=== PATIENT | female | born 1965 | race African-American/Black ===

== ENCOUNTER 2016-12-21 13:43 | Inpatient (IN) ==
[2016-12-21 14:35] LABS: BASO% 0.6 % (0.0-0.8); EOS# 0.18 X1000 (0.0-0.7); EOS% 2.6 % (0.0-10.0); HEMATOCRIT 17.3 % (37.0-47.0); HEMOGLOBIN 4.6 g/dL (12.0-16.0); LYMPH# 1.51 X1000 (1.2-3.4); LYMPH% 22.2 % (20.5-51.1); MANUAL DIFF NEEDED? YES; MCH 16.3 PG (27-31); MCHC 26.6 g/dL (33-37); MCV 61.1 FL (81-99); MONO# 0.37 X1000 (0.11-0.59); MONO% 5.4 % (1.7-9.3); NEUT% 69.2 % (42.2-75.2); PLT 279 X1000 (130-400); RBC 2.83 XMIL (4.2-5.4)
[2016-12-21 14:43] LABS: EOS 2 % (1-10); HYPOCHROM 3+; LYMPHS 22 % (21-51); MONO 4 % (1-9)
[2016-12-21 15:02] LABS: AGAP 13; ALBUMIN 3.6 g/dL (3.5-5.0); ALKALINE PHOSPHATASE 96 U/L (32-104); BUN 35 mg/dL (8-22); CALCIUM 8.4 mg/dL (8.8-10.2); CHLORIDE 103 mmol/L (98-107); COSMO 285; GOT 10 U/L (10-30); GPT < 5 U/L (10-36); POTASSIUM 3.6 mmol/L (3.5-5.1); SODIUM 138 mmol/L (136-145); TCO2 23 mmol/L (25-35); TOTAL PROTEIN 8.3 g/dL (6.3-8.3)
[2016-12-21] MEDS: NS 1,000 ML IV SCH (15:22)
[2016-12-21 15:36] LABS: OCCULT BLOOD 1 NEGATIVE (NEGATIVE)
--- NOTE | 2016-12-21 15:37 | PROVIDER DOCUMENTATION ---
This chart was entered by Gisselle Sunshine Scribe, acting as scribe for Pablo Gutierrez Jr, MD. HPI-Syncope/Dizziness - General Chief Complaint: Dizziness Stated Complaint: DIZZINESS Time Seen by Provider: 12/21/16 13:59 Source: patient Allergies/Adverse Reactions: Patient Allergies Allergy/AdvReac Type Severity Reaction Status Date / Time No Known Allergies Allergy Verified 08/21/15 01:04 Home Medications: Home Medication List Medication Instructions Recorded Confirmed Last Taken Type Lisinopril/Hydrochlorothiazide 1 each PO DAILY #90 tablet 08/17/15 08/21/15 05:00 Rx [Zestoretic 20-25 mg Tablet] Metoprolol [Lopressor] 25 mg PO BID #180 tablet 08/17/15 08/21/15 08/20/15 05: 00 Rx Tramadol HCl [Ultram] 50 mg PO Q6H PRN PRN #20 tablet 08/21/15 Unknown Rx - History of Present Illness-Syncope/Dizzy Nature of Presenting Problem: 51 yo f presents to the ER with complaint of dizziness, onset last night. States she has had similar episodes in the past when she needed blood, most recent was in 2014. States she was just getting to work, was standing and then got more and more dizzy and her vision faded to black and her legs "felt like jelly". Prior Episodes: reports: remote history Onset/Duration: reports: last night Position/Activity at time of episode: reports: standing Symptoms prior to episode: reports: lightheaded Context: reports: felt faint, almost passed out Loss of Consciousness: no loss of consciousness Current Symptoms: reports: lightheaded, dizzy Recently Seen Here or By Another Healthcare Provider: No - Dizziness Dizziness Related Current/Associated Symptoms: reports: weakness, dizzy, lightheaded Any recent trauma/injury?: reports: none Modifying Factors: improves with: nothing Patient usually:: reports: walks without assistance Review of Systems - Adult - REVIEW OF SYSTEMS - ADULT Constitutional: denies: chills, fever Eyes: reports: no symptoms reported Ears, Nose, Mouth & Throat: reports: no symptoms reported Cardiovascular: denies: chest pain, palpitations Respiratory: denies: cough, shortness of breath Gastrointestinal: reports: no symptoms reported Genitourinary: reports: no symptoms reported Musculoskeletal: reports: no symptoms reported Integumentary: reports: no symptoms reported Neurological: reports: dizziness/vertigo. denies: headache/migraines, syncope Psychiatric: reports: no symptoms reported Endocrine: reports: no symptoms reported Hematologic/Lymphatic: reports: no symptoms reported Allergic/Immunologic: reports: no symptoms reported All Other Systems: Reviewed and Negative Past History - Adult - PAST MEDICAL HISTORY-ADULT Review of Records: reports: Nursing Assessment Review, Medications Reviewed Cardiovascular: reports: HTN Obstetrical/Gynecological: reports: other (hx cervical CA) Endocrine/Immune: reports: anemia - PRIOR SURGERIES/PROCEDURES Surgical/Procedure History: reports: BTL, gastric bypass - IMMUNIZATION STATUS Childhood Immunizations: See Nurse Assessment Flu Vaccine: See Nurse Assessment Physical Exam-General - PHYSICAL EXAM-ADULT Initial Vital Signs Reviewed: Yes - CONSTITUTIONAL General Appearance: alert, no apparent distress - EYES Eyes: PERRL/EOMI, pink conjunctivae - HEAD, EARS, NOSE, MOUTH & THROAT HENMT: moist mucous membranes, normal ENT inspection, other (upper dentures) - NECK Neck: supple, normal inspection - RESPIRATORY Respiratory: no respiratory distress, no accessory muscle use - CARDIOVASCULAR Cardiovascular: normal peripheral pulses, regular rate, rhythm, systolic murmur - GENITOURINARY Female Genitalia/Pelvic Exam: negative: active bleeding, blood Rectal Exam: normal exam, normal rectal tone. negative: black stool, blood streaked stool, hemorrhoids, tenderness - MUSCULOSKELETAL Back Exam: no CVA tenderness, no vertebral tenderness Extremity: normal gait, normal inspection - SKIN Integumentary: normal color, warm/dry - NEUROLOGIC Neurologic: grossly normal, no motor/sensory deficits - PSYCHIATRIC Psych/Mental Status: normal mood/affect, normal thought content, normal thought process, oriented x 3 Progress - PLAN OF CARE/RESULTS Progress/Plan/Lab Results: Vital Signs - 8 hr 12/21/16 13:52 12/21/16 14:00 Temperature 98 F Pulse Rate 102 H Pulse Rate [Sitting] 89 Pulse Rate [Standing] 89 Pulse Rate [Supine] 93 H Respiratory Rate 18 Blood Pressure 109/63 Blood Pressure [Sitting] 112/63 Blood Pressure [Standing] 123/71 Blood Pressure [Supine] 126/68 O2 Sat by Pulse Oximetry 100 Laboratory Results - last 24 hr 12/21/16 12/21/16 12/21/16 14:13 14:13 14:13 WBC 6.81 RBC 2.83 L Hgb 4.6 L* Hct 17.3 L MCV 61.1 L MCH 16.3 L MCHC 26.6 L RDW Std Deviation 20.3 H Plt Count 279 MPV Not Reportable Immature Gran % (Auto) 0.0 Neut % (Auto) 69.2 Lymph % (Auto) 22.2 Stafford % (Auto) 5.4 Eos % (Auto) 2.6 Baso % (Auto) 0.6 Immature Gran # (Auto) 0.00 Neut # (Auto) 4.71 Lymph # (Auto) 1.51 Stafford # (Auto) 0.37 Eos # (Auto) 0.18 Baso # (Auto) 0.04 Segmented Neutrophils 72 Lymphocytes 22 Monocytes 4 Eosinophils 2 Hypochromia 3+ Poikilocytosis 1+ Anisocytosis 1+ Microcytosis 3+ Sodium 138 Potassium 3.6 Chloride 103 Carbon Dioxide 23 L Anion Gap 13 BUN 35 H Creatinine 1.4 H Estimated GFR/1.73 m2 40 BUN/Creatinine Ratio 25 Glucose 123 H Calculated Osmolality 285 Calcium 8.4 L Total Bilirubin 0.50 AST 10 ALT < 5 L Alkaline Phosphatase 96 Total Protein 8.3 Albumin 3.6 Globulin 5.0 Albumin/Globulin Ratio 1.0 Blood Type B POSITIVE Antibody Screen NEGATIVE Crossmatch See Detail Orders Category Date Time Status ED: Orthostatic Vital Signs (E as directed Care 12/21/16 13:57 Active Transfuse .Give-Transfuse Care 12/21/16 14:33 Active CBC WITH DIFF [HEME] Stat Lab 12/21/16 14:13 Completed COMPREHENSIVE METABOLIC PANEL [CHEM] Stat Lab 12/21/16 14:13 Completed FOLATE Urgent Lab 12/21/16 14:13 Received HH [HGB AND HCT] [HEME] Urgent Lab 12/21/16 23:00 Ordered LRPC (RED CELLS) [BBK] Stat Lab 12/21/16 14:13 Results OCCULT BLOOD SCREEN STOOL PL Stat Lab 12/21/16 15:31 Ordered RETIC COUNT [HEME] Urgent Lab 12/21/16 15:20 Ordered TYPE & SCREEN [BBK] Stat Lab 12/21/16 14:13 Results UA [URINALYSIS W/POSS RFLX CULT-1] [URINALYSIS] Stat Lab 12/21/16 15:23 Uncollected UIBC W TOTAL IRON [CHEM] Urgent Lab 12/21/16 14:13 Received VITAMIN B12 Urgent Lab 12/21/16 14:13 Received 0.9% Sodium Chloride Inj [Ns] 1,000 ml Med 12/21/16 15:22 Active IV 75 mls/hr Transfer/Admit Order [TRANSFER] Routine Transfer 12/21/16 15:20 Ordered Result Diagrams: 12/21/16 14:13 12/21/16 14:13 - CONSULTS/PCP/HOSPITALIST Notification #1 *Consult/PCP/Hospitalist*: Dr. Pop Time Discussed: 14:59 Consult Disposition: Admit Departure - Departure Date of Disposition Decision: 12/21/16 Time of Disposition Decision: 15:09 DIAGNOSIS: Microcytic anemia, Anemia requiring transfusions Disposition: ADMITTED INPATIENT 09 Certified Medical Emergency: Emergent Condition: Good Referrals and Follow-Ups: Misael Reeves MD [Primary Care Provider] - - Critical Care Note This patient required my direct & personal management of CC.: No This chart was documented by the indicated scribe, (Gisselle Sunshine Scribe) and accurately reflects the services I performed and decisions made by me, Pablo Gutierrez Jr, MD, as attested by the provider's signature.
[2016-12-21 15:40] LABS: RETIC% 1.54 % (0.8-2.1); RETIC-HE 14.6 PG (28.2-36.6)
[2016-12-21 15:46] LABS: IRON SATURATION 3 %; TIBC 429 ug/dL; TOTAL IRON 14 ug/dL (49-151); UNBOUND IRON 415 ug/dL (112-346)
[2016-12-21] MEDS ORDERED: SODIUM CHLORIDE 0.9% INJ SCH (16:08)
[2016-12-21] MEDS ORDERED: ZOFRAN IV PRN (16:08)
[2016-12-21] MEDS ORDERED: TYLENOL PO PRN (16:08)
[2016-12-21] MEDS ORDERED: NS 1,000 ML IV ONE (16:08)
[2016-12-21 16:55] LABS: BILIRUBIN URINE NEGATIVE (NEGATIVE); BLOOD URINE 2+ (NEGATIVE); CLARITY CLOUDY (CLEAR); COLOR YELLOW; GLUCOSE URINE NEGATIVE (NEGATIVE); LEUKOCYTES URINE 2+ (NEGATIVE); NITRITE URINE NEGATIVE (NEGATIVE); PROTEIN URINE TRACE mg/dL (NEGATIVE); UROBILINOGEN URINE NORMAL
[2016-12-21 16:56] LABS: URINE CULTURE PL NEEDED? YES; URINE EPITHELIAL CELLS >10 /HPF (<10); URINE WBC TNTC /HPF (<10)
[2016-12-21 16:57] LABS: URINE CAST NONE SEEN /LPF; URINE CRYSTAL NONE SEEN /HPF; URINE SOURCE CLEAN CATCH
[2016-12-21] MEDS: PROTONIX IV SCH (17:11)
[2016-12-21 23:34] LABS: HEMATOCRIT 20.5 % (37.0-47.0); HEMOGLOBIN 5.8 g/dL (12.0-16.0)
[2016-12-22] MEDS ORDERED: TYLENOL PO ONE (03:52)
[2016-12-22] MEDS ORDERED: BENADRYL IV ONE (03:53)
[2016-12-22] MEDS: NS 1,000 ML IV SCH (13:54)
[2016-12-22 14:16] LABS: HEMATOCRIT 24.6 % (37.0-47.0); HEMOGLOBIN 7.2 g/dL (12.0-16.0); MCH 20.5 PG (27-31); MCHC 29.3 g/dL (33-37); MCV 70.1 FL (81-99); PLT 213 X1000 (130-400); RBC 3.51 XMIL (4.2-5.4)
--- NOTE | 2016-12-22 15:37 | PROGRESS NOTE ---
DATE: 12/22/2016 SUBJECTIVE: The patient has no focal complaints. She seems like she is feeling better. OBJECTIVE: Vital signs: Blood pressure was 122/77, heart rate 76, respiratory rate 18, temperature 98.1 degrees. Cardiovascular: Regular rate and rhythm. Pulmonary: Bilateral breath sounds. Clear to auscultation. GI: Soft, nontender, nondistended. Bowel sounds are positive. LABORATORY DATA: Hemoglobin and hematocrit had only come up to 5.8 and 20.5. Reticulocyte count normal. Chemistries I did not repeat. Iron studies show low iron, high iron-binding capacity, 3% iron saturation, ferritin was not done, B12 and folate were normal. PROBLEM LIST: 1. Symptomatic anemia. She is being transfused another 2 units and then we will reassess her hemoglobin and hematocrit and follow. 2. Acute kidney injury. Continue hydration, repeat labs and follow. 3. Hypertension appears to be stable. Continue to monitor. cc: Garett Pop MD
--- NOTE | 2016-12-22 15:46 | HISTORY AND PHYSICAL ---
CHIEF COMPLAINT: Presyncope. HISTORY OF PRESENT ILLNESS: A 51-year-old female with chronic anemia, without really a great explanation who came in with dizziness. She had similar episodes in the past. She has needed transfusion in the past. Last episode was 2014. She was dizzy with walking. Her legs felt like jelly, but she did not actually pass out. She reports no hematochezia and no melena. She has not had a menstrual cycle in 3 years. Her hemoglobin and hematocrit on admission at this time was 4.6 and 17 with a BUN and creatinine of 35 and 1.4. Patient was admitted for symptomatic anemia. PAST MEDICAL HISTORY: 1. Hypertension. 2. Chronic anemia. PAST SURGICAL HISTORY: Denies. FAMILY HISTORY: Reviewed, noncontributory. SOCIAL HISTORY: No tobacco or ethanol. ALLERGIES: No known drug allergies. MEDICATIONS: She is on lisinopril, hydrochlorothiazide 25 daily, Pepcid 40 b.i.d., Klor-Con 10 daily, Norvasc 5 daily. REVIEW OF SYSTEMS: Otherwise negative times a 10 point review of systems. PHYSICAL EXAMINATION: VITAL SIGNS: Blood pressure 122/77, heart rate 76, respiratory rate 18, temperature 98.1, 95% on room air. GENERAL: Well-developed female, in no acute distress. HEENT: Head exam was normocephalic, atraumatic. Eye exam, pupils equal, round, reactive to light. Extraocular movements were intact. Ear, nose and throat exam showed moist mucous membranes. She had pale conjunctivae. NECK: Supple. No thyromegaly. PULMONARY: Exam bilateral breath sounds. Clear to auscultation. GI: Soft, nontender, nondistended. Bowel sounds were positive. EXTREMITIES: No clubbing or cyanosis. LYMPHATICS: No peripheral edema. NEUROLOGICAL: Nonfocal. MUSCULOSKELETAL: Exam was 5/5 on all 4 extremities. LABORATORY DATA: Hemoglobin and hematocrit on admission was 4 and 17, MCV of 61. Normal white count and Hemoccult was negative per rectal exam per ER. ASSESSMENT: This is a 51-year-old female with symptomatic anemia and hypertension. 1. Symptomatic anemia. We will check vitamin B12, folate, iron levels and follow clinically. We will plan to transfuse 2 units and reassess and decide about further transfusions. 2. Acute kidney injury. We will continue gentle hydration. Monitor labs. Hold hydrochlorothiazide and lisinopril for the time being. DISPOSITION: Pending her clinical course. cc: MD Misael Lal MD
[2016-12-22] MEDS: PROTONIX IV SCH (16:59)
[2016-12-22] MEDS: PEPCID PO SCH (20:09)
[2016-12-22 23:31] LABS: OCCULT BLOOD 1 POSITIVE (NEGATIVE)
[2016-12-23 06:00] LABS: HEMOGLOBIN 7.2 g/dL (12.0-16.0); MCH 20.1 PG (27-31); MCHC 28.8 g/dL (33-37); MCV 69.8 FL (81-99); PLT 226 X1000 (130-400); RBC 3.58 XMIL (4.2-5.4)
[2016-12-23 06:19] LABS: AGAP 6; BUN 22 mg/dL (8-22); CALCIUM 8.3 mg/dL (8.8-10.2); CHLORIDE 105 mmol/L (98-107); COSMO 276; POTASSIUM 4.3 mmol/L (3.5-5.1); SODIUM 137 mmol/L (136-145); TCO2 26 mmol/L (25-35)
[2016-12-23] MEDS ORDERED: PRINIVIL PO SCH (09:00)
[2016-12-23] MEDS ORDERED: KLOR-CON PO SCH (09:00)
[2016-12-23] MEDS ORDERED: NORVASC PO SCH (09:00)
[2016-12-23] MEDS ORDERED: HYDROCHLOROTHIAZIDE PO SCH (09:00)
[2016-12-23] MEDS: PEPCID PO SCH (09:43)
[2016-12-23] MEDS ORDERED: PROTONIX IV SCH (10:15)
[2016-12-23] MEDS ORDERED: SODIUM CHLORIDE 0.9% INJ SCH (10:15)
[2016-12-23] MEDS: CARAFATE PO SCH ×2 (11:12→15:57)
[2016-12-23] MEDS ORDERED: ROCEPHIN 1 GM/NS 1 GM/50 ML IVPB IV ONE (14:16)
[2016-12-23] MEDS ORDERED: LASIX IV ONE ×2 (14:16→17:00)
[2016-12-23] MEDS ORDERED: BENADRYL IV ONE ×2 (14:16→15:00)
--- NOTE | 2016-12-23 16:38 | DISCHARGE SUMMARY ---
ADMISSION DATE: 12/21/2016 DISCHARGE DATE: 12/23/2016 DISCHARGE DIAGNOSES: 1. Symptomatic anemia likely related to a chronic lower gastrointestinal bleed or chronic gastrointestinal bleed not otherwise characterized. 2. Acute kidney injury related to diuretic. 3. Urinary tract infection Escherichia coli positive urinary tract infection. ADMISSION DIAGNOSIS: Symptomatic anemia. CONSULTATIONS: None. PROCEDURES: She had 5 units of packed red blood cells transfused. HOSPITAL COURSE: Briefly, this is a 51-year-old female who came in. She has chronic anemia. She has had multiple workups and transfusions intermittently in the past. Last time she was worked up was in 2014. She has had EGD's, colonoscopies, and she even reported a capsule endoscopy remotely. Denies any NSAID abuse. She came in with dizziness. She works at [employer] and almost passed out. BUN and creatinine was 35 and 1.4. Her hemoglobin and hematocrit was 4.6 and 17. She was initially given 2 units of blood and only went up to about 5 and 20. She was given another 2 units of blood and went up to 7.2 and 24. At the time of discharge she was 7.2 and 25. Initial heme test was negative. Repeat heme test was positive. I think that was actually on a stool sample. We discussed treatment options with the patient. She has had numerous workups in the past that are negative. I do not think she is actively bleeding in the sense that she has a rapid bleed, but I think she will need a GI workup. She preferred to pursue this as an outpatient. So, she will contact Dr. Gross on Sunday for outpatient evaluation. We both told her, Marie Jane and I, that if she does have progression, increasing melena or hematochezia or hematemesis or coffee-ground emesis, she needs to come back and get evaluated. She was told to avoid NSAIDs. We will give her PPI to go home with. She did have a positive urine on admission. Urine culture was positive. She was given Rocephin prior to discharge and given Keflex to go home with. ADDITIONAL DISCHARGE MEDICATIONS: 1. Norvasc 5 daily. 2. Keflex 500 q. 8 hours for 7 days. 3. Nexium 40 daily. 4. Lisinopril 20 daily. 5. Klor-Con 10 daily. 6. We stopped her hydrochlorothiazide just because she had some acute kidney injury issues. DISPOSITION: 1. Urgent follow up with Dr. Gross for GI evaluation. 2. She will need follow up complete blood count and basic in 1 week. That will be per Dr. Misael Reeves. 3. If she has progression, any bleeding, she will need to come back and get re-evaluated. DISCHARGE CONDITION: Stable. FOLLOW UP: We will continue to follow. TIME SPENT: 35 minute discharge. cc: MD Misael Lal MD Babu Kantamneni, MD
[2016-12-23 19:06] VITALS: BP 146/92
== END 2016-12-23 19:31 | disposition home or self-care (01) ==
LOC: P.ED 13:43 → P.MEDSURG 16:04
PROVIDERS: ATTEND Internal Medicine